=== PATIENT | female | born 1995 | race Two or more races ===

== ENCOUNTER 2018-11-10 11:12 | Emergency (ER) | payer OTHER ==
[2018-11-10 11:18] VITALS: BP 110/76
[2018-11-10] MEDS ORDERED: DIPH/PERTUSS(ACELL)/TETANUS VAC/PF 0.5 ML SYR (>=10YO) IM ONE (11:24)
--- NOTE | 2018-11-10 11:26 | ER Document Report ---
HPI - HPI Patient complains to provider of: Finger lacerations Time Seen by Provider: 11/10/18 11:20 Onset: Just prior to arrival Onset/Duration: Sudden Quality of pain: Achy Pain Level: 2 Context: Patient states she was using a knife and accidentally slipped cutting her left second and third fingers. Patient is uncertain when her last tetanus immunization was. Associated Symptoms: Other - Finger lacerations Exacerbated by: Movement Relieved by: Denies Similar symptoms previously: No Recently seen / treated by doctor: No - ROS ROS below otherwise negative: Yes Systems Reviewed and Negative: Yes All other systems reviewed and negative - NEURO Neurology: DENIES: Weakness - REPRODUCTIVE Reproductive: DENIES: : - MUSCULOSKELETAL Musculoskeletal: REPORTS: Extremity pain - DERM Skin Problems: Laceration Past Medical History - General Information source: Patient - Social History Smoking Status: Never Smoker Frequency of alcohol use: None Drug Abuse: None Occupation: Truck Service Technician History: Reviewed & Not Pertinent - Medical History Medical History: Negative Surgical Hx: Negative - Immunizations Hx Diphtheria, Pertussis, Tetanus Vaccination: No Vertical Provider Document - CONSTITUTIONAL Agree With Documented VS: Yes Exam Limitations: No Limitations General Appearance: WD/WN, No Apparent Distress - HEENT HEENT: Atraumatic, Normocephalic - NECK Neck: Normal Inspection - RESPIRATORY Respiratory: No Respiratory Distress - CARDIOVASCULAR Pulses: Normal: Radial - MUSCULOSKELETAL/EXTREMETIES Musculoskeletal/Extremeties: BLANCA TAYLOR - NEURO Level of Consciousness: Awake, Alert, Appropriate Motor/Sensory: No Motor Deficit - DERM Integumentary: Warm, Dry, Laceration - Superficial laceration to radial aspect of right second and third fingertips Course - Vital Signs Vital signs: Temp Pulse Resp BP Pulse Ox 98.6 F 76 14 110/76 97 11/10/18 11:16 11/10/18 11:16 11/10/18 11:16 11/10/18 11:16 11/10/18 11:16 Procedures - Laceration/Wound Repair Left Finger 2nd digit Wound length (cm): 0.3 Wound's Depth, Shape: Linear Laceration pre-procedure: Shur-Clens applied Wound Repaired With: Dermabond Post-procedure wound care: Sterile dressing applied Post-procedure NV exam normal: Yes Complications: No Hands back picture: 1 - .3 cm superficial lac Left Finger 3rd digit Wound length (cm): 1 Wound's Depth, Shape: Linear Wound explored: Clean Wound Repaired With: Dermabond Post-procedure wound care: Sterile dressing applied Post-procedure NV exam normal: Yes Complications: No Hands back picture: 1 - 1 cm superficial lac Discharge - Discharge Clinical Impression: Finger laceration Qualifiers: Encounter type: initial encounter Finger: unspecified finger Damage to nail status: without damage Foreign body presence: without foreign body Laterality: left Qualified Code(s): S61.219A - Laceration without foreign body of unspecif ied finger without damage to nail, initial encounter Condition: Stable Disposition: HOME, SELF-CARE Instructions: Skin Adhesive Closure (OM), Tetanus Immunization Given (OM) Additional Instructions: return immediately for any new or worsening symptoms Followup with your primary care provider, call tomorrow to make a followup appointment Forms: Return to Work Referrals: [facility] [Provider Group] - Follow up as needed
== END 2018-11-10 11:53 | disposition home or self-care (01) ==
LOC: ER 11:12
PROC: 0HQGXZZ Repair Left Hand Skin, External Approach (ICD-10-PCS; principal; 2018-11-10)
DX: S61.211A Laceration without foreign body of left index finger without damage to nail, initial encounter (principal); S61.213A Laceration without foreign body of left middle finger without damage to nail, initial encounter; W26.0XXA Contact with knife, initial encounter
CPT/HCPCS: 90471; 90715; 99283